=== PATIENT | male | born 1935 | race Caucasian/White ===

== ENCOUNTER 2017-02-27 19:27 | Emergency (ER) | payer OTHER, BC ==
[~2017-02-27] VITALS: Ht 170.2 cm; Wt 44.5 kg
[~2017-02-27 19:27] MED LIST: ASPIR-TRIN325 M1 PO; B COMPLEX1 EACH; CALCIUM 600 +1 EAC9; CRANBERRY500 MG PO; DAILY VITE1 EAC1 PO; DILAUDID2 MG PO; DILAUDID4 MG PO; DILAUDID8 MG PO; DURAGESIC1 EAC1 TD; DURAGESIC50 MCG TD; ESGIC 50-325-41 EACH PO; HYDROCHLOROTH12.5 M2; MAXALT10 MG PO; MIRALAX17 GM PO; NEURONTIN; NEURONTIN300 MG PO; Neurontin PO; PROMETHAZINE HC25 M1 PO; PROTONIX; PROTONIX40 MG PO; VALIUM2 MG PO; ZESTRIL5 MG; Zantac PO; Zestoretic,Prinzide PO
[2017-02-27] MEDS ORDERED: VALIUM5 MG PO (21:37)
[2017-02-27] MEDS ORDERED: DILAUDID4 MG PO (21:37)
[2017-02-27 23:14] VITALS: BP 154/96
== END 2017-02-27 23:22 | disposition home or self-care (01) ==
LOC: EME 19:27
DX: G89.4 Chronic pain syndrome (principal); Z79.891 Long term (current) use of opiate analgesic; I10 Essential (primary) hypertension; J44.9 Chronic obstructive pulmonary disease, unspecified; K21.9 Gastro-esophageal reflux disease without esophagitis; Z86.73 Personal history of transient ischemic attack (TIA), and cerebral infarction without residual deficits; F32.9 Major depressive disorder, single episode, unspecified; Z87.891 Personal history of nicotine dependence; Z88.0 Allergy status to penicillin
CPT/HCPCS: 99281; 99285; J1885; J3360; J7040

== ENCOUNTER 2017-03-03 16:05 | Inpatient (IN) | payer OTHER, BC ==
[~2017-03-03] VITALS: Ht 162.6 cm; Wt 64.9 kg
[~2017-03-03 16:05] MED LIST changes: +VALIUM5 MG PO
[2017-03-03 19:05] LABS: MCH 31.1 PG (29.0-34.0); MCHC 33.4 G/DL (30.0-36.0); MCV 92.9 FL (86-99); MEAN PLAT.VOLUME 10.2 uM^3 (9.0-12.4); PLATELET COUNT 214 K/uL (156-360); RED BLOOD COUNT 4.09 M/uL (4.00-5.50); WHITE BLOOD COUNT 9.9 K/uL (4.1-10.2)
[2017-03-03 19:18] LABS: CHLORIDE 102 mEq/L (99-109); POTASSIUM 3.4 mEq/L (3.7-5.4); SODIUM 140 mEq/L (136-147)
[2017-03-03 19:20] LABS: GLUCOSE 97 mg/dL (70-99)
[2017-03-03 19:22] LABS: ANION GAP 9 MEQ/L (2-14); TOTAL BILIRUBIN 0.5 mg/dL (0.0-1.0)
[2017-03-03 19:24] LABS: ALKALINE PHOSPHATASE 53 IU/L (3-129); GFR ESTIMATE (CALCULATED) 34 mL/min/
[2017-03-03 19:25] LABS: UREA NITROGEN (BUN) 37 mg/dL (9-23)
[2017-03-03 20:09] LABS: ADD MIUA? YES; BILIRUBIN NEGATIVE; BLOOD NEGATIVE; COLOR AMBER ((YELLOW)); GLUCOSE (STRIP) NEGATIVE; KETONES NEGATIVE; LEUKOCYTES NEGATIVE; NITRITE NEGATIVE; PROTEIN (STRIP) NEGATIVE; SPECIFIC GRAVITY 1.016 (1.000-1.030); UROBILINOGEN 0.2 MG/DL (0.2-1.0)
[2017-03-03 20:22] LABS: BACTERIA NONE SEEN /HPF; EPITHELIAL CELLS RARE /HPF; HYALINE CASTS TNTC /LPF; MUCUS TRACE /LPF; RED BLOOD CELLS 0-5 /HPF (0-5); UCUL ADDED? NO; WHITE BLOOD CELLS 0-5 /HPF (0-5)
[2017-03-04] VITALS (7 sets, daily range): BP systolic 103–150; BP diastolic 57–92
[2017-03-04 11:22] LABS: ANION GAP 10 MEQ/L (2-14); CHLORIDE 106 MEQ/L (99-109); GFR ESTIMATE (CALCULATED) > 59 mL/min/; GLUCOSE 86 mg/dL (70-99); POTASSIUM 3.3 MEQ/L (3.7-5.4); SAMPLE HEMOLYSIS CHECK 0; SAMPLE ICTERIC CHECK 0; SAMPLE LIPEMIA CHECK 0; SODIUM 143 MEQ/L (136-147); UREA NITROGEN (BUN) 31 mg/dL (9-23)
[2017-03-04] MEDS ORDERED: DILAUDID4 MG PO (15:53)
[2017-03-04] MEDS ORDERED: DURAGESIC50 MCG TD (15:54)
[2017-03-04] MEDS ORDERED: VALIUM5 MG PO (15:54)
[2017-03-05 03:33] VITALS: BP 134/75
[2017-03-05 06:11] LABS: HEMATOCRIT 33.2 % (38.0-50.0); MCH 31.4 PG (29.0-34.0); MCHC 33.4 G/DL (30.0-36.0); MCV 94.1 FL (86-99); MEAN PLAT.VOLUME 10.3 uM^3 (9.0-12.4); PLATELET COUNT 207 K/uL (156-360); RBC DIS.WIDTH-CV 14.5 % (11.8-14.6); RBC DIS.WIDTH-SD 49.8 % (39-53); RED BLOOD COUNT 3.53 M/uL (4.00-5.50)
[2017-03-05 06:35] LABS: ANION GAP 5 MEQ/L (2-14); CHLORIDE 111 MEQ/L (99-109); GFR ESTIMATE (CALCULATED) > 59 mL/min/; GLUCOSE 85 mg/dL (70-99); POTASSIUM 3.8 MEQ/L (3.7-5.4); SAMPLE HEMOLYSIS CHECK 0; SAMPLE ICTERIC CHECK 0; SAMPLE LIPEMIA CHECK 0; SODIUM 146 MEQ/L (136-147); UREA NITROGEN (BUN) 21 mg/dL (9-23)
[2017-03-05 08:49] VITALS: BP 167/73
[2017-03-05 12:25] VITALS: BP 134/84
[2017-03-05 15:47] VITALS: BP 183/87
[2017-03-05 19:48] VITALS: BP 131/67
[2017-03-06 00:29] VITALS: BP 166/97
[2017-03-06 03:42] VITALS: BP 177/79
[2017-03-06 08:01] VITALS: BP 128/60
[2017-03-06 10:47] LABS: HEMATOCRIT 35.9 % (38.0-50.0); MCH 32.8 PG (29.0-34.0); MCHC 34.3 G/DL (30.0-36.0); MCV 95.7 FL (86-99); MEAN PLAT.VOLUME 10.4 uM^3 (9.0-12.4); PLATELET COUNT 228 K/uL (156-360); RBC DIS.WIDTH-CV 14.9 % (11.8-14.6); RED BLOOD COUNT 3.75 M/uL (4.00-5.50); WHITE BLOOD COUNT 7.7 K/uL (4.1-10.2)
[2017-03-06 11:11] LABS: ANION GAP 9 MEQ/L (2-14); CHLORIDE 107 MEQ/L (99-109); GFR ESTIMATE (CALCULATED) > 59 mL/min/; GLUCOSE 99 mg/dL (70-99); POTASSIUM 3.7 MEQ/L (3.7-5.4); SAMPLE HEMOLYSIS CHECK 0; SAMPLE ICTERIC CHECK 0; SAMPLE LIPEMIA CHECK 0; SODIUM 143 MEQ/L (136-147); UREA NITROGEN (BUN) 11 mg/dL (9-23)
[2017-03-06 15:25] VITALS: BP 180/88
[2017-03-06 23:33] VITALS: BP 137/77
[2017-03-07 08:44] VITALS: BP 124/69
[2017-03-07 16:10] VITALS: BP 130/70
[2017-03-08 00:09] VITALS: BP 145/75
[2017-03-08 07:44] VITALS: BP 111/62
[2017-03-08 12:55] LABS: EOSINOPHIL (%) 6.6 % (0-5); EOSINOPHIL COUNT 0.5 K/uL (0-0.3); IMMATURE GRANULOCYTE (%) 0.1 % (0.0-0.7); LYMPHOCYTE COUNT 2.4 K/uL (1.0-2.8); MCH 32.1 PG (29.0-34.0); MCHC 33.7 G/DL (30.0-36.0); MCV 95.2 FL (86-99); MEAN PLAT.VOLUME 10.3 uM^3 (9.0-12.4); MONOCYTE COUNT 0.5 K/uL (0-0.8); NEUTROPHIL (%) 53.6 % (45-76); PLATELET COUNT 224 K/uL (156-360); RBC DIS.WIDTH-CV 14.7 % (11.8-14.6); RBC DIS.WIDTH-SD 51.3 % (39-53); RED BLOOD COUNT 3.99 M/uL (4.00-5.50); WHITE BLOOD COUNT 7.5 K/uL (4.1-10.2)
[2017-03-08 13:17] LABS: ALKALINE PHOSPHATASE 47 IU/L (3-129); ANION GAP 9 MEQ/L (2-14); CHLORIDE 106 MEQ/L (99-109); GFR ESTIMATE (CALCULATED) > 59 mL/min/; GLUCOSE 80 mg/dL (70-99); LIPASE 18 U/L (1.0-51.0); POTASSIUM 4.2 MEQ/L (3.7-5.4); SAMPLE HEMOLYSIS CHECK 1; SAMPLE ICTERIC CHECK 0; SAMPLE LIPEMIA CHECK 0; SODIUM 142 MEQ/L (136-147); TOTAL BILIRUBIN 0.9 MG/DL (0.0-1.0); UREA NITROGEN (BUN) 12 mg/dL (9-23)
[2017-03-08 13:37] LABS: GAMMA-GT 6 IU/L (4-73)
[2017-03-08 16:14] VITALS: BP 149/81
[2017-03-09 00:01] VITALS: BP 115/57
[2017-03-09 07:25] VITALS: BP 120/70
[2017-03-09] MEDS ORDERED: DOCUSATE SODIU100 MG PO (07:39)
[2017-03-09] MEDS ORDERED: NEXIUM40 MG PO (07:39)
== END 2017-03-09 15:59 | disposition home health service (06) | DRG 684 ==
LOC: EME 16:05 → 5SOUTH 23:02 → EDOF 23:02 → ENRESERV 23:04 → 5SOUTH 03-04 00:37 → EDOF 03-04 00:37 → 5SOUTH 03-09 15:59
PROVIDERS: Hospitalist; Internal Medicine; Physician Assistant; Physician Assistant Medical
PROC: 0DJ08ZZ Inspection of Upper Intestinal Tract, Via Natural or Artificial Opening Endoscopic (ICD-10-PCS; principal; 2017-03-07)
DX: N17.9 Acute kidney failure, unspecified (principal); K22.2 Esophageal obstruction; J44.9 Chronic obstructive pulmonary disease, unspecified; K21.9 Gastro-esophageal reflux disease without esophagitis; R10.9 Unspecified abdominal pain; F41.8 Other specified anxiety disorders; E86.0 Dehydration; E87.6 Hypokalemia; I10 Essential (primary) hypertension; R12 Heartburn; K22.70 Barrett's esophagus without dysplasia; M47.9 Spondylosis, unspecified; G89.29 Other chronic pain; M81.0 Age-related osteoporosis without current pathological fracture; K29.70 Gastritis, unspecified, without bleeding; Z87.891 Personal history of nicotine dependence; Z88.6 Allergy status to analgesic agent; Z88.0 Allergy status to penicillin; Z88.8 Allergy status to other drugs, medicaments and biological substances; Z87.442 Personal history of urinary calculi; Z86.73 Personal history of transient ischemic attack (TIA), and cerebral infarction without residual deficits
CPT/HCPCS: 70450; 74220; 76705; 76770; 80048; 80053; 81003; 82977; 83690; 85025; 85027; 90839; 92610 GN; 97530 GO; 97530 GP; 99281; 99285; C9113; J1170; J1644; J2060; J2405; J3010; J3480; J7030; J7050; S0028

== ENCOUNTER 2017-03-25 09:48 | Emergency (ER) | payer OTHER, BC ==
[~2017-03-25] VITALS: Ht 170.2 cm; Wt 59.3 kg
[~2017-03-25 09:48] MED LIST changes: +DOCUSATE SODIU100 MG PO; +NEXIUM40 MG PO
[2017-03-25 10:39] LABS: BASOPHIL COUNT 0.1 K/uL (0-0.1); EOSINOPHIL (%) 1.6 % (0-5); EOSINOPHIL COUNT 0.1 K/uL (0-0.3); IMMATURE GRANULOCYTE (%) 0.3 % (0.0-0.7); INSTRUMENT ABS NEUTROPHIL CT 4.4 K/uL; LYMPHOCYTE COUNT 2.6 K/uL (1.0-2.8); MCH 31.5 PG (29.0-34.0); MCHC 34.3 G/DL (30.0-36.0); MEAN PLAT.VOLUME 11.7 uM^3 (9.0-12.4); MONOCYTE (%) 6.2 % (3-12); MONOCYTE COUNT 0.5 K/uL (0-0.8); NEUTROPHIL (%) 57.3 % (45-76); NEUTROPHIL COUNT 4.4 K/uL (1.8-6.4); PLATELET COUNT 194 K/uL (156-360); RBC DIS.WIDTH-CV 14.6 % (11.8-14.6); RBC DIS.WIDTH-SD 49.1 % (39-53); RED BLOOD COUNT 4.35 M/uL (4.00-5.50); WHITE BLOOD COUNT 7.6 K/uL (4.1-10.2)
[2017-03-25 11:13] LABS: CHLORIDE 104 mEq/L (99-109); POTASSIUM 3.3 mEq/L (3.7-5.4); SODIUM 140 mEq/L (136-147)
[2017-03-25 11:15] LABS: GLUCOSE 110 mg/dL (70-99)
[2017-03-25 11:17] LABS: ANION GAP 12 MEQ/L (2-14); TOTAL BILIRUBIN 0.8 mg/dL (0.0-1.0)
[2017-03-25 11:19] LABS: ALKALINE PHOSPHATASE 56 IU/L (3-129); GFR ESTIMATE (CALCULATED) > 59 mL/min/
[2017-03-25 11:20] LABS: UREA NITROGEN (BUN) 16 mg/dL (9-23)
[2017-03-25 11:22] LABS: LIPASE 10 U/L (1.0-51.0)
[2017-03-25 11:24] LABS: TROP-I INTERPRETATION NEGATIVE; TROPONIN-I < 0.01 ng/mL (0.0-0.30)
[2017-03-25 13:32] LABS: TROP-I INTERPRETATION NEGATIVE; TROPONIN-I < 0.01 ng/mL (0.0-0.30)
[2017-03-25] MEDS ORDERED: PERCOCET 5/31 TABLET PO (14:09)
[2017-03-25 14:40] VITALS: BP 151/84
== END 2017-03-25 15:23 | disposition home or self-care (01) ==
LOC: EME 09:48
PROVIDERS: Emergency Medicine
DX: R10.10 Upper abdominal pain, unspecified (principal); R51 Headache; G89.29 Other chronic pain; R00.0 Tachycardia, unspecified; K44.9 Diaphragmatic hernia without obstruction or gangrene; N28.1 Cyst of kidney, acquired; I70.0 Atherosclerosis of aorta; Z79.891 Long term (current) use of opiate analgesic; Z87.442 Personal history of urinary calculi; Z86.73 Personal history of transient ischemic attack (TIA), and cerebral infarction without residual deficits; Z87.891 Personal history of nicotine dependence
CPT/HCPCS: 70450; 71010; 74177; 80053; 83690; 84484; 85025; 93005; 99281; 99285; J3010; J7030

== ENCOUNTER 2017-04-15 17:23 | Inpatient (IN) | payer OTHER, BC ==
[~2017-04-15] VITALS: Ht 157.5 cm; Wt 60.2 kg
[~2017-04-15 17:23] MED LIST changes: +PERCOCET 5/31 TABLET PO
[2017-04-15 18:15] LABS: CHLORIDE 108 mEq/L (99-109); POTASSIUM 3.4 mEq/L (3.7-5.4); SODIUM 141 mEq/L (136-147)
[2017-04-15 18:18] LABS: GLUCOSE 124 mg/dL (70-99)
[2017-04-15 18:19] LABS: ANION GAP 9 MEQ/L (2-14)
[2017-04-15 18:20] LABS: TOTAL BILIRUBIN 0.7 mg/dL (0.0-1.0)
[2017-04-15 18:21] LABS: ALKALINE PHOSPHATASE 52 IU/L (3-129); GFR ESTIMATE (CALCULATED) > 59 mL/min/; SERUM ETHYL ALCOHOL < 10 mg/dL
[2017-04-15 18:22] LABS: UREA NITROGEN (BUN) 16 mg/dL (9-23)
[2017-04-15 18:25] LABS: HEMATOCRIT 38.6 % (38.0-50.0); MCH 31.9 PG (29.0-34.0); MCHC 34.2 G/DL (30.0-36.0); MCV 93.2 FL (86-99); RBC DIS.WIDTH-CV 14.9 % (11.8-14.6); RBC DIS.WIDTH-SD 50.7 % (39-53); RED BLOOD COUNT 4.14 M/uL (4.00-5.50); WHITE BLOOD COUNT 10.3 K/uL (4.1-10.2)
[2017-04-15 18:26] LABS: MEAN PLAT.VOLUME 9.5 uM^3 (9.0-12.4); PLATELET COUNT 279 K/uL (156-360)
[2017-04-15 19:34] LABS: ADD MIUA? NO; BILIRUBIN NEGATIVE; BLOOD NEGATIVE; COLOR YELLOW ((YELLOW)); GLUCOSE (STRIP) NEGATIVE; KETONES NEGATIVE; LEUKOCYTES NEGATIVE; NITRITE NEGATIVE; PROTEIN (STRIP) 30; SPECIFIC GRAVITY 1.014 (1.000-1.030); UCUL ADDED? NO; UROBILINOGEN 0.2 MG/DL (0.2-1.0)
[2017-04-15 19:47] LABS: ADD MEDTOX COMMENT Y; AMPHETAMINE NEGATIVE (500 ng/mL); BARBITURATES NEGATIVE (200 ng/mL); BENZODIAZEPINES PRESUMPTIVE POSITIVE (150 ng/mL); COCAINE NEGATIVE (150 ng/mL); INTERNAL CONTROLS VALID? YES; METHADONE NEGATIVE (200 ng/mL); METHAMPHETAMINE NEGATIVE (500 ng/mL); OPIATES (MORPHINE) PRESUMPTIVE POSITIVE (100 ng/mL); OXYCODONE NEGATIVE (100 ng/mL); PHENCYCLIDINE NEGATIVE (25 ng/mL); PROPOXYPHENE PRESUMPTIVE POSITIVE (300 ng/mL); THC CANNABINOIDS NEGATIVE (50 ng/mL); TRICYCLIC ANTIDEPRESSANTS NEGATIVE (300 ng/mL)
[2017-04-15 20:19] LABS: BENZODIAZEPINES, URINE SCREEN POSITIVE (200 ng/mL)
[2017-04-15 21:15] VITALS: BP 163/82
[2017-04-15 21:21] VITALS: BP 163/82
[2017-04-15] MEDS ORDERED: PROMETHAZINE HC25 M1 PO (22:01)
[2017-04-16 07:41] VITALS: BP 161/84
[2017-04-16 15:09] VITALS: BP 151/71
[2017-04-17 08:06] VITALS: BP 117/66
[2017-04-17 21:48] LABS: ADD MIUA? YES; BILIRUBIN NEGATIVE; BLOOD NEGATIVE; COLOR YELLOW ((YELLOW)); GLUCOSE (STRIP) NEGATIVE; KETONES NEGATIVE; LEUKOCYTES NEGATIVE; NITRITE NEGATIVE; PROTEIN (STRIP) NEGATIVE; SPECIFIC GRAVITY 1.017 (1.000-1.030); UROBILINOGEN 0.2 MG/DL (0.2-1.0)
[2017-04-17 22:08] LABS: BACTERIA NONE SEEN /HPF; EPITHELIAL CELLS RARE /HPF; HYALINE CASTS 0-5 /LPF; MUCUS 1+ /LPF; RED BLOOD CELLS 20-30 /HPF (0-5); WHITE BLOOD CELLS 0-5 /HPF (0-5)
[2017-04-18 07:20] VITALS: BP 115/65
[2017-04-18 15:15] VITALS: BP 113/56
[2017-04-19 05:33] VITALS: BP 100/52
[2017-04-19 07:42] VITALS: BP 108/57
[2017-04-19 15:52] VITALS: BP 139/76
[2017-04-20 07:45] VITALS: BP 118/56
[2017-04-20 15:21] VITALS: BP 144/67
[2017-04-21 07:44] VITALS: BP 108/54
[2017-04-21 15:43] VITALS: BP 103/55
[2017-04-22 07:33] VITALS: BP 106/66
[2017-04-22 16:21] VITALS: BP 151/67
[2017-04-23 07:34] VITALS: BP 125/68
[2017-04-23 15:01] VITALS: BP 176/77
[2017-04-23 18:52] VITALS: BP 121/58
[2017-04-24 07:51] VITALS: BP 184/81
[2017-04-24 10:58] VITALS: BP 177/79
[2017-04-24 15:37] VITALS: BP 122/60
[2017-04-25 07:56] VITALS: BP 125/58
[2017-04-25 15:57] VITALS: BP 212/110
[2017-04-25 17:13] VITALS: BP 177/81
[2017-04-25 21:12] VITALS: BP 161/94
[2017-04-26 07:44] VITALS: BP 116/58
[2017-04-26 15:41] VITALS: BP 166/83
[2017-04-26] MEDS ORDERED: AMLODIPINE BESY10 MG PO (16:50)
[2017-04-26] MEDS ORDERED: HYDROMORPHONE HC2 MG PO (16:50)
[2017-04-26] MEDS ORDERED: MIRTAZAPINE30 MG PO (16:50)
[2017-04-26] MEDS ORDERED: BUPROPION HCL100 M1 PO (16:50)
[2017-04-26] MEDS ORDERED: ZOLPIDEM TARTRAT5 MG PO (16:50)
[2017-04-26] MEDS ORDERED: ARIPIPRAZOLE2 MG PO (16:50)
[2017-04-26] MEDS ORDERED: FENTANYL1 EAC5 TD (16:50)
== END 2017-04-26 18:48 | DRG 885 ==
LOC: EME 17:23 → 1WEST 19:46 → EDOF 19:46 → 1WEST 21:08
PROVIDERS: Emergency Medicine; Psychiatry & Neurology Psychiatry
DX: F32.2 Major depressive disorder, single episode, severe without psychotic features (principal); R45.851 Suicidal ideations; F23 Brief psychotic disorder; F03.90 Unspecified dementia, unspecified severity, without behavioral disturbance, psychotic disturbance, mood disturbance, and anxiety; G89.29 Other chronic pain; I10 Essential (primary) hypertension; I25.10 Atherosclerotic heart disease of native coronary artery without angina pectoris; J44.9 Chronic obstructive pulmonary disease, unspecified; K21.0 Gastro-esophageal reflux disease with esophagitis; G43.909 Migraine, unspecified, not intractable, without status migrainosus; M54.5 Low back pain; M19.90 Unspecified osteoarthritis, unspecified site; G44.89 Other headache syndrome; G47.00 Insomnia, unspecified; Z87.891 Personal history of nicotine dependence; Z86.73 Personal history of transient ischemic attack (TIA), and cerebral infarction without residual deficits; Z87.442 Personal history of urinary calculi; Z88.0 Allergy status to penicillin; Z88.6 Allergy status to analgesic agent; Z88.5 Allergy status to narcotic agent; Z99.3 Dependence on wheelchair
CPT/HCPCS: 80053; 81003; 82550; 82607; 82746; 84443; 84999; 85027; 90839; 97150 GO; 97166 GO; 99281; 99285; G0480; Q0169

== ENCOUNTER 2017-09-15 23:00 | Emergency (ER) | payer OTHER, BC ==
[~2017-09-15] VITALS: Ht 170.2 cm; Wt 67.0 kg
[~2017-09-15 23:00] MED LIST changes: +AMLODIPINE BESY10 MG PO; +ARIPIPRAZOLE2 MG PO; +BUPROPION HCL100 M1 PO; +FENTANYL1 EAC5 TD; +HYDROMORPHONE HC2 MG PO; +MIRTAZAPINE30 MG PO; +ZOLPIDEM TARTRAT5 MG PO
[2017-09-15 23:51] LABS: HEMATOCRIT 39.4 % (38.0-50.0); MCH 31.9 PG (29.0-34.0); MCV 96.8 FL (86-99); NRBC (%) 0.1 /100 WBC (0-0); PLATELET COUNT 442 K/uL (156-360); RBC DIS.WIDTH-CV 13.5 % (11.8-14.6); RBC DIS.WIDTH-SD 48.7 % (39-53); RED BLOOD COUNT 4.07 M/uL (4.00-5.50)
[2017-09-16 00:02] LABS: CHLORIDE 104 mEq/L (99-109); POTASSIUM 4.3 mEq/L (3.7-5.4); SODIUM 142 mEq/L (136-147)
[2017-09-16 00:04] LABS: GLUCOSE 103 mg/dL (70-99)
[2017-09-16 00:08] LABS: CREATININE 1.1 mg/dL (0.6-1.3); GFR ESTIMATE (CALCULATED) > 59 mL/min/ (58.99-99999); UREA NITROGEN (BUN) 33 mg/dL (9-23)
[2017-09-16 00:12] LABS: TROP-I INTERPRETATION NEGATIVE; TROPONIN-I 0.01 ng/mL (0.0-0.30)
[2017-09-16 02:18] LABS: TROP-I INTERPRETATION NEGATIVE; TROPONIN-I < 0.01 ng/mL (0.0-0.30)
[2017-09-16] MEDS ORDERED: ZITHROMAX250 MG PO (04:08)
[2017-09-16 04:16] VITALS: BP 176/98
== END 2017-09-16 04:17 | disposition home or self-care (01) ==
LOC: EME 23:00
PROVIDERS: Emergency Medicine
DX: R07.9 Chest pain, unspecified (principal); I10 Essential (primary) hypertension; R05 Cough; R00.0 Tachycardia, unspecified; R79.1 Abnormal coagulation profile; J43.9 Emphysema, unspecified; F03.90 Unspecified dementia, unspecified severity, without behavioral disturbance, psychotic disturbance, mood disturbance, and anxiety; Z86.73 Personal history of transient ischemic attack (TIA), and cerebral infarction without residual deficits; Z87.891 Personal history of nicotine dependence
CPT/HCPCS: 71046; 71275; 80048; 84484; 85027; 85379; 87502; 93005; 99281; 99284

== ENCOUNTER → 2017-10-27 | Outpatient (CLI) | payer MEDICARE ==
[~2017-10-27] MED LIST changes: +ACID CONTROL150 MG PO; +BACLOFEN10 MG PO; +FENTANYL1 EAC4 TD; +LISINOPRIL10 MG PO; +SENNA8.6 MG PO; +TRAMADOL HCL50 MG PO; +ZITHROMAX250 MG PO
== END | disposition home or self-care (01) ==
LOC: CDC 11:50
DX: Z01.810 Encounter for preprocedural cardiovascular examination (principal); S22.000A Wedge compression fracture of unspecified thoracic vertebra, initial encounter for closed fracture; I44.0 Atrioventricular block, first degree
CPT/HCPCS: 93000

== ENCOUNTER 2017-11-02 09:41 | Day surgery (SDC) | payer OTHER, BC, MEDICARE ==
[~2017-11-02] VITALS: Ht 162.6 cm; Wt 68.0 kg
[2017-11-02 10:24] VITALS: BP 153/84
[2017-11-02 14:05] VITALS: BP 147/74
[2017-11-02 14:53] VITALS: BP 133/66
== END 2017-11-02 14:55 | disposition home or self-care (01) ==
LOC: SDC 09:41
PROC: 0PU43JZ Supplement Thoracic Vertebra with Synthetic Substitute, Percutaneous Approach (ICD-10-PCS; principal; 2017-11-02)
DX: M48.54XA Collapsed vertebra, not elsewhere classified, thoracic region, initial encounter for fracture (principal); I10 Essential (primary) hypertension; K21.9 Gastro-esophageal reflux disease without esophagitis; R00.0 Tachycardia, unspecified; J44.9 Chronic obstructive pulmonary disease, unspecified; Z87.891 Personal history of nicotine dependence; Z86.73 Personal history of transient ischemic attack (TIA), and cerebral infarction without residual deficits
CPT/HCPCS: J0131; J1100; J2405; J3010

== ENCOUNTER 2018-01-03 15:20 | Inpatient (IN) | payer OTHER, BC, MEDICARE ==
[~2018-01-03] VITALS: Ht 170.2 cm; Wt 68.1 kg
[2018-01-03 16:32] LABS: HEMATOCRIT 38.5 % (38.0-50.0); HEMOGLOBIN 12.5 G/DL (12.5-16.6); MCH 28.4 PG (29.0-34.0); MCHC 32.5 G/DL (30.0-36.0); MCV 87.5 FL (86-99); PLATELET COUNT 355 K/uL (156-360); RBC DIS.WIDTH-CV 16.5 % (11.8-14.6); RBC DIS.WIDTH-SD 53.1 % (39-53)
[2018-01-03 16:43] LABS: CHLORIDE 111 mEq/L (99-109); POTASSIUM 4.1 mEq/L (3.7-5.4); SODIUM 144 mEq/L (136-147)
[2018-01-03 16:45] LABS: GLUCOSE 154 mg/dL (70-99)
[2018-01-03 16:49] LABS: CREATININE 1.1 mg/dL (0.6-1.3); GFR ESTIMATE (CALCULATED) > 59 mL/min/ (58.99-99999)
[2018-01-03 16:50] LABS: UREA NITROGEN (BUN) 16 mg/dL (9-23)
[2018-01-03 16:55] LABS: TROP-I INTERPRETATION NEGATIVE; TROPONIN-I < 0.01 ng/mL (0.0-0.30)
[2018-01-03 17:29] LABS: ALBUMIN 3.7 g/dL (3.2-4.8)
[2018-01-03 17:32] LABS: TOTAL PROTEIN 7.6 g/dL (6.4-8.3)
[2018-01-03 17:34] LABS: TOTAL BILIRUBIN 0.4 mg/dL (0.0-1.0)
[2018-01-03 17:35] LABS: ALKALINE PHOSPHATASE 105 IU/L (3-129)
[2018-01-03 17:37] LABS: AST (GOT) 17 IU/L (2-34); DIRECT BILIRUBIN 0.2 mg/dL (0.0-0.3)
[2018-01-03 17:38] LABS: ALT (GPT) 13 IU/L (3-49)
[2018-01-03] MEDS ORDERED: NORVASC10 MG PO (18:06)
[2018-01-03] MEDS ORDERED: ABILIFY2 MG PO (18:10)
[2018-01-03] MEDS ORDERED: TESSALON PERLE100 MG PO (18:12)
[2018-01-03 20:38] VITALS: BP 153/76
[2018-01-04] VITALS (7 sets, daily range): BP systolic 114–162; BP diastolic 71–92
[2018-01-04 05:26] LABS: BASOPHIL (%) 0.3 % (0-1); EOSINOPHIL (%) 0 % (0-5); HEMOGLOBIN 11.9 G/DL (12.5-16.6); IMMATURE GRANULOCYTE (%) 0.3 % (0.0-0.7); LYMPHOCYTE (%) 7.1 % (15-42); LYMPHOCYTE COUNT 0.6 K/uL (1.0-2.8); MCH 27.5 PG (29.0-34.0); MCHC 31.3 G/DL (30.0-36.0); MCV 87.8 FL (86-99); MONOCYTE COUNT 0.1 K/uL (0-0.8); NEUTROPHIL (%) 91.3 % (45-76); NEUTROPHIL COUNT 7.2 K/uL (1.8-6.4); PLATELET COUNT 329 K/uL (156-360); RBC DIS.WIDTH-CV 16.4 % (11.8-14.6); RED BLOOD COUNT 4.33 M/uL (4.00-5.50); WHITE BLOOD COUNT 7.9 K/uL (4.1-10.2)
[2018-01-04 05:57] LABS: CHLORIDE 110 MEQ/L (99-109); GFR ESTIMATE (CALCULATED) > 59 mL/min/ (58.99-99999); POTASSIUM 3.9 MEQ/L (3.7-5.4); SODIUM 142 MEQ/L (136-147); UREA NITROGEN (BUN) 15 mg/dL (9-23)
[2018-01-04 06:02] LABS: GLUCOSE 237 mg/dL (70-99)
[2018-01-05 04:00] VITALS: BP 146/87
[2018-01-05 06:16] LABS: CHLORIDE 111 MEQ/L (99-109); CREATININE 0.8 MG/DL (0.6-1.3); GFR ESTIMATE (CALCULATED) > 59 mL/min/ (58.99-99999); GLUCOSE 130 mg/dL (70-99); POTASSIUM 4.4 MEQ/L (3.7-5.4); SODIUM 143 MEQ/L (136-147); UREA NITROGEN (BUN) 11 mg/dL (9-23)
[2018-01-05 07:46] VITALS: BP 149/77
[2018-01-05 12:01] VITALS: BP 129/81
[2018-01-05] MEDS ORDERED: LOPRESSOR25 MG PO (14:47)
[2018-01-05] MEDS ORDERED: MEDROL DOSEPAK4 MG PO (14:48)
[2018-01-05] MEDS ORDERED: CEFTIN500 MG PO (14:48)
== END 2018-01-05 16:08 | disposition home or self-care (01) | DRG 190 ==
LOC: EME 15:20 → 5SOUTH 18:50 → EDOF 18:50 → ENRESERV 18:51 → 5SOUTH 20:17
PROVIDERS: Family Medicine; Internal Medicine
DX: J44.0 Chronic obstructive pulmonary disease with (acute) lower respiratory infection (principal); J18.9 Pneumonia, unspecified organism; J44.1 Chronic obstructive pulmonary disease with (acute) exacerbation; R06.03 Acute respiratory distress; R09.02 Hypoxemia; I10 Essential (primary) hypertension; Z86.73 Personal history of transient ischemic attack (TIA), and cerebral infarction without residual deficits; Z87.891 Personal history of nicotine dependence; I25.10 Atherosclerotic heart disease of native coronary artery without angina pectoris; R00.0 Tachycardia, unspecified; F03.90 Unspecified dementia, unspecified severity, without behavioral disturbance, psychotic disturbance, mood disturbance, and anxiety; G62.9 Polyneuropathy, unspecified; K21.9 Gastro-esophageal reflux disease without esophagitis; K22.70 Barrett's esophagus without dysplasia; K29.70 Gastritis, unspecified, without bleeding; F32.9 Major depressive disorder, single episode, unspecified; F41.9 Anxiety disorder, unspecified; G89.29 Other chronic pain; M54.5 Low back pain; M17.0 Bilateral primary osteoarthritis of knee; Z79.891 Long term (current) use of opiate analgesic; G43.909 Migraine, unspecified, not intractable, without status migrainosus; Z87.442 Personal history of urinary calculi; Z81.8 Family history of other mental and behavioral disorders; Z88.8 Allergy status to other drugs, medicaments and biological substances; Z88.0 Allergy status to penicillin; Z88.6 Allergy status to analgesic agent; Z88.5 Allergy status to narcotic agent
CPT/HCPCS: 71046; 80048; 80076; 83605; 84484; 85025; 85027; 87040; 87070; 87205; 87449; 93005; 94640; 94640 76; 94799; 99202; 99281; 99285; J0456; J0692; J0696; J1650; J2920; J3370; J7030; J7512